=== PATIENT | female | born 1970 | race Asian ===

== ENCOUNTER → 2022-04-07 | Outpatient (CLI) | payer MEDICARE, OTHER ==
[~2022-04-07] MED LIST: ALBU8HFA IH; ATEN-73 PO; CABE0.5T2 PO; CALC1TAB15 PO; CHOL200016 PO; ERGO500050 PO; ESCI-8 PO; FERR1TAB24 PO; HYDR-3708 PO; HYDR25TA2 PO; IBUP-2071 PO; PREN1TAB52 PO; TOPI100T37 PO
== END | disposition home or self-care (01) ==
LOC: RADPV 15:19
PROVIDERS: ATTEND Legal Medicine
DX: R60.9 Edema, unspecified (principal); M79.606 Pain in leg, unspecified; I82.402 Acute embolism and thrombosis of unspecified deep veins of left lower extremity
CPT/HCPCS: 93970